=== PATIENT | female | born 1970 | race African-American/Black ===

== ENCOUNTER 2023-10-29 21:11 | Inpatient (IN) | payer MEDICAID ==
[~2023-10-29] VITALS: Ht 162.6 cm; Wt 128.1 kg
[~2023-10-29 21:11] MED LIST: CIPR500T4 PO
[2023-10-29 21:38] VITALS: BP 148/99; PULSE 88; TEMP 98.1; O2SAT 100
[2023-10-30] VITALS (7 sets, daily range): BP systolic 145–176; BP diastolic 88–100; PULSE 84–103; RESP 16–20; TEMP 98–98.9; O2SAT 94–100
[2023-10-30] MEDS ORDERED: NITROGLYCERIN 0.4 MG SL TAB SL PRN (00:15)
[2023-10-30] MEDS ORDERED: ACETAMINOPHEN 325 MG TAB PO PRN (00:15)
[2023-10-30] MEDS ORDERED: MORPHINE SULFATE INJ 2 MG/ml SYRG IV PRN ×2 (00:15)
[2023-10-30] MEDS ORDERED: DEXTROSE (50%) 50ML SYRG IV PRN ×2 (00:15→13:00)
[2023-10-30 00:55] LABS: Basophils # (auto) 0.1 10 ^3/uL (0-0.2); Basophils % (auto) 1.3 % (0.0-2.0); Eosinophils # (auto) 0.1 10 ^3/uL (0-0.8); Eosinophils % (auto) 3.2 % (0.0-7.0); Hematocrit 31.5 % (36.0-46.0); Hemoglobin 10.2 g/dL (12.2-16.2); Lymphocytes # (auto) 1.7 10 ^3/uL (0.4-5.4); Lymphocytes % (auto) 36.9 % (10.0-50.0); Mean Corpuscular Hemoglobin 25.9 pg (28.0-32.0); Mean Corpuscular Hgb Conc. 32.3 g/dL (32.0-36.0); Mean Corpuscular Volume 80.1 fL (80.0-100.0); Monocytes # (auto) 0.4 10 ^3/uL (0-1.3); Monocytes % (auto) 9.1 % (0.0-12.0); Neutrophils # (auto) 2.3 10 ^3/uL (1.6-8.6); Neutrophils % (auto) 49.5 % (37.0-80.0); Red Blood Cells 3.93 10^6/uL (4.0-5.20); White Blood Cell 4.6 10^3/uL (4.4-10.8)
[2023-10-30 01:12] LABS: Alanine Aminotransferase 24 U/L (7-40); Albumin 3.9 g/dL (3.2-4.8); Alkaline Phosphatase 72 U/L (46-116); Anion Gap 8 (5-15); Aspartate Aminotransferase 25 U/L (13-40); Bilirubin, Total 0.4 mg/dL (0.2-1.0); Carbon Dioxide 29 mmol/L (20-30); Chloride 103 mmol/L (98-107); Glucose 228 mg/dL (74-106); Potassium 3.1 mmol/L (3.5-5.1); Sodium 140 mmol/L (136-145); Total Protein 6.6 g/dL (5.7-8.2)
[2023-10-30 01:13] LABS: BUN/Creatinine Ratio 7.1 (10.0-20.0); Blood Urea Nitrogen < 5 mg/dL (9-23)
[2023-10-30] MEDS ORDERED: cefTRIAXone 1GM/50ML D5W 50 ML IV SCH (01:30)
[2023-10-30 02:11] LABS: Urine Bacteria None Seen /hpf (None Seen)
[2023-10-30 03:02] LABS: Urine Blood TRACE /uL (Negative); Urine Budding Yeast FEW /hpf (None Seen); Urine Clarity Clear (Clear); Urine Color Light-Yellow (Yellow); Urine Protein, UAD 1+ (Negative); Urine Specific Gravity 1.021 (1.001-1.035); Urine Urobilinogen Normal (Negative); Urine WBC 62 /hpf (0 - 5); Urine pH 6.5 (5.0-9.0)
[2023-10-30] MEDS: cefTRIAXone 1GM/50ML D5W 50 ML IV SCH (05:06)
[2023-10-30] MEDS: ACCU-CHEK COMFORT CURVE STRIP VI SCH ×2 (06:00→17:00)
[2023-10-30] MEDS: InsuLIN REG 1unit/0.01ml Soln (100units/ml) SC SCH ×2 (06:38→17:00)
[2023-10-30] MEDS ORDERED: HYDROcodone-ACET 5/325MG TAB PO PRN (06:45)
[2023-10-30] MEDS ORDERED: CLON0.3D4 TOP (06:59)
[2023-10-30] MEDS ORDERED: BENA-36 PO (06:59)
[2023-10-30] MEDS ORDERED: SOLI10TA39 PO (06:59)
[2023-10-30] MEDS ORDERED: PROM25TA10 PO (06:59)
[2023-10-30] MEDS ORDERED: BENA10TA90 PO (06:59)
[2023-10-30] MEDS ORDERED: MET50T PO (06:59)
[2023-10-30] MEDS ORDERED: GLIP5TAB21 PO (06:59)
[2023-10-30] MEDS ORDERED: SITA100T7 PO (06:59)
[2023-10-30] MEDS ORDERED: VENL1TAB99 PO (06:59)
[2023-10-30] MEDS ORDERED: LEVO500T91 PO (06:59)
[2023-10-30] MEDS ORDERED: GABA800T97 PO (06:59)
[2023-10-30] MEDS: POTASSIUM CHLORIDE 40 MEQ, LIDOCAINE 1% (LOCAL ANESTH.) 4 ML in SODIUM CHL 0.9% 250 ML IV ONE (09:15)
[2023-10-30] MEDS: BENAZEPRIL HCL 10 MG TAB PO SCH (09:39)
[2023-10-30] MEDS: ASPirin 81 mg TAB PO SCH (09:39)
[2023-10-30] MEDS: GABAPENTIN 300 MG CAP PO SCH (09:39)
[2023-10-30] MEDS: METOPROLOL TARTRATE 50 MG TAB PO SCH (09:39)
[2023-10-30] MEDS: OXYCODONE W/ ACETAMINOPHEN 5/325MG TABLET PO PRN ×2 (12:01→18:18)
[2023-10-30] MEDS: clonazePAM 0.5 MG TAB PO SCH (13:30)
[2023-10-30] MEDS: POTASSIUM EFFERVESENT TAB 25 MEQ PO ONE (13:30)
[2023-10-30] MEDS: LABETALOL HCL 5 MG/ML 4ML SYRINGE IV PRN (13:35)
[2023-10-31] VITALS (12 sets, daily range): BP systolic 135–197; BP diastolic 49–121; PULSE 87–104; RESP 16–20; TEMP 97.9–98.6; O2SAT 93–99
[2023-10-31 06:55] LABS: Anion Gap 9 (5-15); Calcium 7.3 mg/dL (8.5-10.1); Carbon Dioxide 28 mmol/L (20-30); Chloride 102 mmol/L (98-107); Potassium 3.5 mmol/L (3.5-5.1); Sodium 139 mmol/L (136-145)
[2023-10-31 07:01] LABS: Glucose 232 mg/dL (74-106); Magnesium 1.2 mg/dL (1.6-2.6)
[2023-10-31 07:02] LABS: Blood Urea Nitrogen < 5 mg/dL (9-23)
[2023-10-31] MEDS: METOPROLOL TARTRATE 50 MG TAB PO ONE (09:20)
[2023-10-31] MEDS: IODIXANOL 320MG/ML 100ML BTL IV ONE ×2 (14:45→15:52)
[2023-10-31] MEDS: LIDOCAINE 2%HCL (LOCAL ANESTH.) INJ 20ML MDV ONE (14:45)
[2023-10-31] MEDS: VERAPAMIL 2.5MG/ML INJ 2ML VIAL IV ONE (14:56)
[2023-10-31] MEDS: HEPARIN SODIUM (PORCINE) 5000 UNITS/ML 1ML VIAL ONE (14:56)
[2023-10-31] MEDS: fentaNYL CITRATE 100 MCG/2 ML VL ONE (14:58)
[2023-10-31] MEDS: MIDAZOLAM HCL 2MG/2ML 2ml VIAL (1mg/ml) ONE (14:59)
[2023-10-31] MEDS ORDERED: OMEP20TA PO (15:16)
[2023-10-31] MEDS: hydrALAZINE HCL 20 MG/ML VL ONE (15:21)
[2023-10-31] MEDS: FUROSEMIDE 20 MG/2 ML VIAL ONE (15:52)
[2023-10-31] MEDS: ONDANSETRON HCL 4 MG/2 ML VIAL IV PRN (16:34)
[2023-10-31] MEDS: NITROGLYCERIN 0.4 MG SL TAB SL PRN (20:09)
[2023-10-31] MEDS: SACUBITRIL-VALSARTAN 24mg/26mg TAB PO SCH (22:08)
[2023-10-31] MEDS: CARVEDILOL 12.5 MG TAB PO SCH (22:09)
[2023-11-01 00:58] VITALS: BP 162/90; PULSE 101; RESP 16; TEMP 98.3; O2SAT 94
[2023-11-01 05:00] VITALS: BP 177/99; PULSE 91; RESP 20; TEMP 97.8; O2SAT 98
[2023-11-01 08:00] VITALS: PULSE 86; PULSE 92; RESP 20; O2SAT 98
[2023-11-01 08:42] LABS: Basophils # (auto) 0.1 10 ^3/uL (0-0.2); Basophils % (auto) 1.3 % (0.0-2.0); Eosinophils # (auto) 0.1 10 ^3/uL (0-0.8); Eosinophils % (auto) 3.4 % (0.0-7.0); Hematocrit 37.8 % (36.0-46.0); Hemoglobin 11.8 g/dL (12.2-16.2); Lymphocytes # (auto) 1.4 10 ^3/uL (0.4-5.4); Lymphocytes % (auto) 33.5 % (10.0-50.0); Mean Corpuscular Hemoglobin 25.3 pg (28.0-32.0); Mean Corpuscular Hgb Conc. 31.1 g/dL (32.0-36.0); Mean Corpuscular Volume 81.3 fL (80.0-100.0); Monocytes # (auto) 0.4 10 ^3/uL (0-1.3); Neutrophils # (auto) 2.2 10 ^3/uL (1.6-8.6); Neutrophils % (auto) 52.8 % (37.0-80.0); Red Blood Cells 4.66 10^6/uL (4.0-5.20); Red Cell Distribution Width 17.3 % (11.8-14.3); White Blood Cell 4.1 10^3/uL (4.4-10.8)
[2023-11-01 08:57] LABS: Alkaline Phosphatase 59 U/L (46-116); Anion Gap 6 (5-15); Aspartate Aminotransferase 71 U/L (13-40); Bilirubin, Total 0.5 mg/dL (0.2-1.0); Calcium 7.8 mg/dL (8.5-10.1); Carbon Dioxide 28 mmol/L (20-30); Chloride 101 mmol/L (98-107); Cholesterol 239 mg/dL (< 200); Glucose 223 mg/dL (74-106); LDL Cholesterol 147 mg/dL (< 100); Sodium 135 mmol/L (136-145); Total Protein 7.6 g/dL (5.7-8.2)
[2023-11-01] MEDS: EMPAGLIFLOZIN 10 MG TAB PO SCH (08:57)
[2023-11-01 09:00] VITALS: BP 148/95; PULSE 87; RESP 22; TEMP 98.5; O2SAT 95
[2023-11-01 09:08] LABS: Alanine Aminotransferase 28 U/L (7-40); Albumin 4.2 g/dL (3.2-4.8); HDL Cholesterol 38 mg/dL (40-59); Potassium 5.1 mmol/L (3.5-5.1); Triglycerides 258 mg/dL (< 150)
[2023-11-01 09:09] LABS: BUN/Creatinine Ratio 6.5 (10.0-20.0); Blood Urea Nitrogen < 5 mg/dL (9-23)
== END 2023-11-01 12:05 | disposition hospice, home (50) | DRG 192 ==
LOC: TELE-CENTR 21:43 → UNDOADMIN 21:43 → TELE-CENTR 10-30 00:11
PROVIDERS: ADMIT Nurse Practitioner Acute Care; ATTEND Nurse Practitioner Acute Care
PROC: 4A023N7 Measurement of Cardiac Sampling and Pressure, Left Heart, Percutaneous Approach (ICD-10-PCS; principal; 2023-10-31)
PROC: B211YZZ Fluoroscopy of Multiple Coronary Arteries using Other Contrast (ICD-10-PCS; 2023-10-31)
PROC: B215YZZ Fluoroscopy of Left Heart using Other Contrast (ICD-10-PCS; 2023-10-31)
DX: I47.20 Ventricular tachycardia, unspecified (principal); G92.8 Other toxic encephalopathy; I42.8 Other cardiomyopathies; D57.1 Sickle-cell disease without crisis; I50.32 Chronic diastolic (congestive) heart failure; I11.0 Hypertensive heart disease with heart failure; E11.9 Type 2 diabetes mellitus without complications; E03.9 Hypothyroidism, unspecified; E66.01 Morbid (severe) obesity due to excess calories; G43.909 Migraine, unspecified, not intractable, without status migrainosus; F12.10 Cannabis abuse, uncomplicated; N39.0 Urinary tract infection, site not specified; E87.6 Hypokalemia; I16.1 Hypertensive emergency; G89.4 Chronic pain syndrome; T40.605A Adverse effect of unspecified narcotics, initial encounter; T40.725A Adverse effect of synthetic cannabinoids, initial encounter; T42.4X5A Adverse effect of benzodiazepines, initial encounter; Z83.3 Family history of diabetes mellitus; Z83.2 Family history of diseases of the blood and blood-forming organs and certain disorders involving the immune mechanism; Z98.891 History of uterine scar from previous surgery; Z51.5 Encounter for palliative care; Z91.199 Patient's noncompliance with other medical treatment and regimen due to unspecified reason; Z68.42 Body mass index [BMI] 45.0-49.9, adult; Z82.49 Family history of ischemic heart disease and other diseases of the circulatory system; Z79.899 Other long term (current) drug therapy; Z79.84 Long term (current) use of oral hypoglycemic drugs; Z79.82 Long term (current) use of aspirin; Y92.89 Other specified places as the place of occurrence of the external cause
CPT/HCPCS: 36415; 80048; 80053; 80061; 81001; 82962; 83036; 83735; 83880; 84443; 84484; 85025; 86850; 86900; 86901; 87086; 87088; 87186; 93005; 93306; 93458; 99152; G0378; J1815; J2001; J2250; J2405; J3490; Q9967